=== PATIENT | male | born 1990 | race African-American/Black ===

== ENCOUNTER 2017-06-29 03:04 | Emergency (ER) | payer SELFPAY ==
[2017-06-29 03:08] VITALS: BP 131/76; BMI 29.3
[2017-06-29] MEDS ORDERED: NORFLEX INJ IM ONE (04:46)
[2017-06-29] MEDS ORDERED: TORADOL 60 MG VIAL IM ONE (04:46)
--- NOTE | 2017-06-29 04:47 | DR.EXTPAIN ---
HPI - Time seen Time seen: 15:00 - PCP Primary Care Physician: CRISTINO - HPI Comment HPI Comment: WORSE TONIGHT. NO FEVER OR TRAUMA. MEDS AT HOME DID NOT HELP PAIN. - Complaint/Symptoms Chief Complaint Doctor Comments: PAIN ABOVE KNEES TIMES 3 DAYS. Chief Complaint:: BILATERAL KNEE PAIN SINCE THURSDAY. DENIES ANY EDEMA. DENIES ANY TRAUMA. - Nurses notes reviewed Nurses Notes Review: Yes - Source History Provided: Patient - Mode of arrival Mode of Arrival: Ambulatory - Timing Onset of Chief Complaint: 06/25/17 - Context History of: None - Associated signs and symptoms Associated Signs and Symptoms: Pain PMH - PMH Past Medical History: Yes Past Medical History: Headaches Past Medical History Comment: CHRONIC BACK PAIN Past Surgical History: No - Family History History of Family Medical Conditions: No Family Medical History: Diabetes Mellitus, Hypertension - Social History Does patient currently use any type of tobacco product: No Have you used tobacco products in the last 12 months: No Type of Tobacco Use: Cigarettes Alcohol Use: Occasionally Do you use any recreational Drugs:: No Lives Where: Home - infectious screening Have you traveled outside the country in the last 6 months?: No Isolation: Standard ROS - Review of Systems Constitutional: No Symptoms Reported Eyes: No Symptoms Reported ENTM: No Symptoms Reported Respiratoy: No Symptoms Reported Cardiovascular: No Symptoms Reported Gastrointestinal/Abdominal: No Symptoms Reported Genitourinary: No Symptoms Reported Neurological: No Symptoms Reported Musculoskeletal: Muscle Pain, Right, Left, Knee Integumentary: No Symptoms Reported Hematologic/Lymphatic: No Symptoms Reported Endocrine: No Symptoms Reported All Other Systems: Reviewed and Negative PE - Vital Signs Vitals: Temperature 99.2 F Pulse Rate 98 Respiratory Rate 16 Blood Pressure [Right Arm] 137/58 Blood Pressure 131/76 O2 Sat by Pulse Oximetry 98 - General Limitations: No Limitations General Appearance: Alert - Head Head Exam: Normal Inspection - Eyes Eye exam: Normal Appearance - ENT ENT Exam: Normal External Ear Exam - Neck Neck Exam: Normal Inspection - Chest Chest Inspection: Symmetric Chest Wall Rise - Respiratory Respiratory Exam: Normal Lung Sounds Bilat Respiratory Exam: Bilateral Clear to Auscultation - Cardiovascular Cardiovascular Exam: Regular Rate, Normal Rhythm, Normal Heart Sounds - Abdominal Exam Abdominal Exam: Normal Bowel Sounds, Soft. negative: Tenderness - Extremities Extremities Exam: Tenderness (TENDERNESS ABOVE BOTH KNEES IN THE THIGH. PULSES INTACT.) - Lower Extremities Neurovascular/Tendon Exam: Normal Capillary Refill Gait Exam: Observed & Limited by Pain - Back Back Exam: Paraspinal Tenderness (LOWER SPINE.) - Neurological Neurological Exam: Alert, Oriented X3 - Psychiatric Psychiatric Exam: Normal Affect, Normal Mood - Skin Skin Exam: Normal Color MDM - Differential Diagnosis Differential Diagnosis: Sprain, Other (BURSITIS, TENDINITIS, ARTHRTIS) Course - Treatment Treatment: SEE ORDERS. IM TORADOL AND NORFLEX IN ED. - Reevaluation 1st: Improved - Education/Counseling Education/Counseling: Patient, Education Educated On: Diagnosis, Needs for Follow Up ROR - Labs Reviewed Laboratory Results Reviewed?: Yes Laboratory: D-Dimer < 100 ng/mL (0-400) 06/29/17 05:15 - Diagnosis Discharge Problem: Musculoskeletal pain - Discharge Plan Condition: Stable Prescriptions: Acetaminophen with Codeine [Tylenol/Codeine #3 300-30 mg] 1 tab PO Q6H PRN #15 tab PRN Reason: Pain Meloxicam [Mobic Tab 15 mg] 15 mg PO DAILY #30 tab Tizanidine HCl [Zanaflex 2 mg] 2 mg PO Q8H PRN #21 cap PRN Reason: Muscle Spasms - Follow ups/Referrals Follow ups/Referrals: Karri GREGG [Primary Care Provider] - 3 days - Instructions Instructions: Musculoskeletal Pain Additional Instructions: RETURN TO ED IF WORSE.
[2017-06-29] MEDS ORDERED: NORFLEX INJ ONE (05:00)
[2017-06-29] MEDS ORDERED: TORADOL 60 MG VIAL ONE (05:00)
== END 2017-06-29 06:38 | disposition home or self-care (01) ==
LOC: ER 03:04
DX: M25.561 Pain in right knee (principal); M25.562 Pain in left knee
CPT/HCPCS: 36415; 85378; 96372; 99282; J1885; J2360

== ENCOUNTER 2018-01-22 09:50 | Inpatient (IN) ==
[2018-01-22] MEDS: NS 1000 ML 1,000 ML IV SCH (11:42)
[2018-01-22] MEDS ORDERED: NORCO 5/325 MG TAB PO PRN (11:44)
[2018-01-22 11:45] LABS: BASOPHILS # (AUTO) 0.1 X10^3/uL (0.0-0.1); EOSINOPHILS # (AUTO) 0.7 x10^3/uL (0.0-0.2); EOSINOPHILS % (AUTO) 11.6 % (0.9-2.9); HEMATOCRIT 36.9 % (42.0-54.0); HEMOGLOBIN 12.2 g/dL (13.5-18.0); LYMPHOCYTES # (AUTO) 3.7 X10^3/uL (1.3-2.9); LYMPHOCYTES % (AUTO) 64.5 % (21.0-51.0); MEAN CORPUSCULAR HEMOGLOBIN 28.3 pg (27.0-34.0); MEAN CORPUSCULAR HGB CONC 33.1 g/dL (33.0-35.0); MEAN CORPUSCULAR VOLUME 85.3 fL (80.0-100.0); MEAN PLATELET VOLUME 8.3 fL (7.4-11.0); MONOCYTES # (AUTO) 0.3 x10^3/uL (0.3-0.8); NEUTROPHILS % (AUTO) 16.9 % (42.0-75.0); PLATELET COUNT 261 X10^3/uL (150.0-450.0); RED BLOOD COUNT 4.32 X10^6/uL (4.7-6.0); RED CELL DISTRIBUTION WIDTH 12.9 % (11.6-16.5); WHITE BLOOD COUNT 5.8 X10^3/uL (3.6-10.0)
[2018-01-22 12:06] LABS: ALANINE AMINOTRANSFERASE 170 Units/L (12-78); ALBUMIN 3.2 g/dL (3.4-5.0); ALKALINE PHOSPHATASE 83 Units/L (46-116); ASPARTATE AMINO TRANSFERASE 86 Units/L (15-37); BLOOD UREA NITROGEN 6 mg/dL (7-18); CALCIUM 8.6 mg/dL (8.5-10.1); CARBON DIOXIDE 30.5 mmol/L (21-32); CHLORIDE 103 mmol/L (98-107); COR CA(FOR HYPOALB) 9.2 mg/dL (8.5-10.1); CREATININE 0.99 mg/dL (0.70-1.30); PLATELET MORPHOLOGY COMMENT NORMAL (NORMAL); SODIUM 138 mmol/L (136-145); TOTAL PROTEIN 7.9 g/dL (6.4-8.2); eGFR NON BLACK RACES > 60 (>60)
[2018-01-22] MEDS: ZOSYN VIAL 3.375 GRAMS 3.375 G in NS 100 ML IV + SPIKE MINIBAG* 100 ML IV SCH ×2 (12:15→21:00)
[2018-01-22] MEDS: VISTARIL PO PRN (13:30)
[2018-01-22] MEDS ORDERED: ZOSYN VIAL 3.375 GRAMS IV SCH (14:00)
[2018-01-22 14:45] VITALS: BMI 26.7
[2018-01-22] MEDS: NORCO 10/325 TAB PO PRN (16:27)
[2018-01-22] MEDS: ROBITUSSIN DM PO PRN (16:28)
[2018-01-22] MEDS ORDERED: POTASSIUM CHL 60 MEQ/NS 0.45% 500 ML IV PRN (16:38)
[2018-01-22] MEDS ORDERED: POTASSIUM CHLORIDE LIQ 20 MEQ UDC PO PRN (16:38)
[2018-01-22] MEDS ORDERED: K-LYTE EFFERVESCENT PO PRN (16:38)
[2018-01-22] MEDS ORDERED: K-RIDER 10 MEQ/NS 100 ML 10 MEQ/100 ML BAG IV PRN (16:38)
[2018-01-22] MEDS ORDERED: POTASSIUM CHL 40 MEQ/NS 0.45% 500 ML IV PRN (16:38)
[2018-01-23] MEDS: NS 1000 ML 1,000 ML IV SCH ×3 (00:37→13:31)
[2018-01-23] MEDS: NORCO 10/325 TAB PO PRN (03:29)
[2018-01-23] MEDS: VISTARIL PO PRN ×3 (03:30→20:40)
[2018-01-23] MEDS: ROBITUSSIN DM PO PRN (03:30)
[2018-01-23] MEDS: ZOSYN VIAL 3.375 GRAMS 3.375 G in NS 100 ML IV + SPIKE MINIBAG* 100 ML IV SCH ×3 (05:37→22:24)
[2018-01-23 06:20] LABS: BASOPHILS % (AUTO) 0.5 % (0.2-1.0); EOSINOPHILS # (AUTO) 0.5 x10^3/uL (0.0-0.2); EOSINOPHILS % (AUTO) 10.5 % (0.9-2.9); HEMATOCRIT 34.2 % (42.0-54.0); HEMOGLOBIN 11.4 g/dL (13.5-18.0); LYMPHOCYTES # (AUTO) 2.7 X10^3/uL (1.3-2.9); LYMPHOCYTES % (AUTO) 52.6 % (21.0-51.0); MEAN CORPUSCULAR HEMOGLOBIN 28.6 pg (27.0-34.0); MEAN CORPUSCULAR HGB CONC 33.2 g/dL (33.0-35.0); MEAN PLATELET VOLUME 8.6 fL (7.4-11.0); MONOCYTES # (AUTO) 0.4 x10^3/uL (0.3-0.8); MONOCYTES % (AUTO) 7.2 % (0.0-13.0); NEUTROPHILS # (AUTO) 1.5 x10^3/uL (2.2-4.8); NEUTROPHILS % (AUTO) 29.2 % (42.0-75.0); PLATELET COUNT 207 X10^3/uL (150.0-450.0); RED BLOOD COUNT 3.98 X10^6/uL (4.7-6.0); RED CELL DISTRIBUTION WIDTH 12.5 % (11.6-16.5); WHITE BLOOD COUNT 5.1 X10^3/uL (3.6-10.0)
[2018-01-23 06:35] LABS: ALANINE AMINOTRANSFERASE 149 Units/L (12-78); ALBUMIN 2.5 g/dL (3.4-5.0); ALKALINE PHOSPHATASE 72 Units/L (46-116); ASPARTATE AMINO TRANSFERASE 75 Units/L (15-37); BLOOD UREA NITROGEN 11 mg/dL (7-18); CARBON DIOXIDE 31.1 mmol/L (21-32); CHLORIDE 108 mmol/L (98-107); COR CA(FOR HYPOALB) 9.2 mg/dL (8.5-10.1); CREATININE 1.07 mg/dL (0.70-1.30); SODIUM 142 mmol/L (136-145); TOTAL PROTEIN 6.5 g/dL (6.4-8.2); eGFR NON BLACK RACES > 60 (>60)
[2018-01-23] MEDS: PERCOCET TAB 5/325 MG PO PRN ×3 (10:20→21:23)
[2018-01-23] MEDS: NICOTINE PATCH TD SCH (13:30)
[2018-01-23] MEDS: AMBIEN PO PRN (23:58)
[2018-01-24] MEDS: NS 1000 ML 1,000 ML IV SCH ×2 (04:18→15:36)
[2018-01-24 05:21] LABS: BASOPHILS % (AUTO) 0.6 % (0.2-1.0); EOSINOPHILS # (AUTO) 0.6 x10^3/uL (0.0-0.2); EOSINOPHILS % (AUTO) 10.3 % (0.9-2.9); HEMATOCRIT 31.9 % (42.0-54.0); HEMOGLOBIN 10.7 g/dL (13.5-18.0); LYMPHOCYTES # (AUTO) 2.6 X10^3/uL (1.3-2.9); LYMPHOCYTES % (AUTO) 45.2 % (21.0-51.0); MEAN CORPUSCULAR HEMOGLOBIN 28.6 pg (27.0-34.0); MEAN CORPUSCULAR HGB CONC 33.7 g/dL (33.0-35.0); MEAN CORPUSCULAR VOLUME 84.9 fL (80.0-100.0); MEAN PLATELET VOLUME 8.5 fL (7.4-11.0); MONOCYTES # (AUTO) 0.5 x10^3/uL (0.3-0.8); MONOCYTES % (AUTO) 8.7 % (0.0-13.0); NEUTROPHILS % (AUTO) 35.2 % (42.0-75.0); PLATELET COUNT 209 X10^3/uL (150.0-450.0); RED BLOOD COUNT 3.76 X10^6/uL (4.7-6.0); WHITE BLOOD COUNT 5.7 X10^3/uL (3.6-10.0)
[2018-01-24 05:31] LABS: ALANINE AMINOTRANSFERASE 165 Units/L (12-78); ALBUMIN 2.3 g/dL (3.4-5.0); ALKALINE PHOSPHATASE 78 Units/L (46-116); ASPARTATE AMINO TRANSFERASE 97 Units/L (15-37); BLOOD UREA NITROGEN 13 mg/dL (7-18); CALCIUM 7.8 mg/dL (8.5-10.1); CARBON DIOXIDE 30.4 mmol/L (21-32); CHLORIDE 108 mmol/L (98-107); COR CA(FOR HYPOALB) 9.2 mg/dL (8.5-10.1); CREATININE 1.44 mg/dL (0.70-1.30); SODIUM 141 mmol/L (136-145); TOTAL PROTEIN 6.1 g/dL (6.4-8.2); eGFR NON BLACK RACES > 60 (>60)
[2018-01-24] MEDS: ZOSYN VIAL 3.375 GRAMS 3.375 G in NS 100 ML IV + SPIKE MINIBAG* 100 ML IV SCH ×3 (07:57→21:02)
[2018-01-24] MEDS: PERCOCET TAB 5/325 MG PO PRN ×3 (08:01→20:24)
[2018-01-24] MEDS: NICOTINE PATCH TD SCH (08:01)
[2018-01-24] MEDS: VISTARIL PO PRN ×2 (10:17→20:24)
[2018-01-24] MEDS ORDERED: AQUAPHOR TOP PRN (11:22)
--- NOTE | 2018-01-24 11:31 | PCM.PROG ---
Progress Note - Progress Note for Day of Date of Exam: 01/24/18 - Subjective Subjective: PT IS 27 BM, PATIENT OF DR CEBALLOS ADMITTED FOR DIFFUSE RASH AND LEFT AXILLARY ABSCESS S/P I&D. PT IS CURRENTLY ON IV ATBX WITH LEFT WOUND CULTURE SENSATIVITY PENDING. PT CO DRY SKIN ALL OVER AND ITCHING. PT REPORTS HE IS HAVING MODERATE PAIN TO LEFT AXILLARY, NO VISIBLE OPEN WOUND THIS AM, NO DISCHARGE. INCREASED LIVER ENZYMES, PT HAS HEPATITIS PANEL COLLECTED WITH RESULTS PENDING. - Past Medical Family Social History Past Med/Fam/Surg Hx: No changes since H&P Allergies: Allergies No Known Drug Allergies Allergy (Verified 06/29/17 03:08) - Review of Systems ROS: No change since H&P - Vital Signs and I&O's Vital Signs: Temperature 98.3 F Pulse Rate [Right Brachial] 69 Respiratory Rate 20 Blood Pressure [Right Arm] 117/70 Blood Pressure 132/66 O2 Sat by Pulse Oximetry 99 Intake and Output: Intake & Output 01/21/18 01/22/18 01/23/18 01/24/18 11:59 11:59 11:59 11:59 Intake Total 850 / 850 2799 / 2799 Balance 850 / 850 2799 / 2799 - Physical Exam Oriented: Normal Eyes: Normal Ear: Normal Nose: Normal Throat: Dry Respiratory: Normal Cardiovascular: Normal : Normal Auscultation: Bowel Sounds: Normal Palpation: Normal Tenderness: RUQ, Epigastric, Mild Skin: Rash (DIFFUSE SANDPAPER RASH, WITH EXTREME DRY FLAKING SKIN, PRURITIC), Tender, Wound (2CM X 2CM AREA OF SWELLING TO LEFT AXILLARY ( S/P I&D) WITHOUT OPEN WOUND) Mood Description: Calm Speech Pattern: Clear, Appropriate - Laboratory and Diagnostics Result Diagrams: 01/24/18 04:20 01/24/18 04:20 Labs: 01/22/18 11:31 Blood Blood Culture - Preliminary 01/22/18 11:24 Blood Blood Culture - Preliminary Laboratory WBC 5.7 X10^3/uL (3.6-10.0) 01/24/18 04:20 RBC 3.76 X10^6/uL (4.7-6.0) L 01/24/18 04:20 Hgb 10.7 g/dL (13.5-18.0) L 01/24/18 04:20 Hct 31.9 % (42.0-54.0) L 01/24/18 04:20 MCV 84.9 fL (80.0-100.0) 01/24/18 04:20 MCH 28.6 pg (27.0-34.0) 01/24/18 04:20 MCHC 33.7 g/dL (33.0-35.0) 01/24/18 04:20 RDW 13.0 % (11.6-16.5) 01/24/18 04:20 Plt Count 209 X10^3/uL (150.0-450.0) 01/24/18 04:20 Plt Count Comment Adequate (ADEQUATE) 01/22/18 11:24 MPV 8.5 fL (7.4-11.0) 01/24/18 04:20 Neut % (Auto) 35.2 % (42.0-75.0) L 01/24/18 04:20 Lymph % (Auto) 45.2 % (21.0-51.0) 01/24/18 04:20 [place] % (Auto) 8.7 % (0.0-13.0) 01/24/18 04:20 Eos % (Auto) 10.3 % (0.9-2.9) H 01/24/18 04:20 Baso % (Auto) 0.6 % (0.2-1.0) 01/24/18 04:20 Neut # (Auto) 2.0 x10^3/uL (2.2-4.8) L 01/24/18 04:20 Lymph # (Auto) 2.6 X10^3/uL (1.3-2.9) 01/24/18 04:20 [place] # (Auto) 0.5 x10^3/uL (0.3-0.8) 01/24/18 04:20 Eos # (Auto) 0.6 x10^3/uL (0.0-0.2) H 01/24/18 04:20 Baso # (Auto) 0.0 X10^3/uL (0.0-0.1) 01/24/18 04:20 Absolute Nucleated RBC 0.2 /100WBC 01/24/18 04:20 Total Counted 100 01/22/18 11:24 Neutrophils % (Manual) 20 % (39-76) L 01/22/18 11:24 Lymphocytes % (Manual) 70 % (13-43) H 01/22/18 11:24 Monocytes % (Manual) 4 % (4-9) 01/22/18 11:24 Eosinophils % (Manual) 6 % (0-6) 01/22/18 11:24 Plt Morphology Comment Normal (NORMAL) 01/22/18 11:24 RBC Morphology Normal (NORMAL) 01/22/18 11:24 Sodium 141 mmol/L (136-145) 01/24/18 04:20 Corrected Sodium TNP 01/24/18 04:20 Potassium 3.9 mmol/L (3.5-5.1) 01/24/18 04:20 Chloride 108 mmol/L (98-107) H 01/24/18 04:20 Carbon Dioxide 30.4 mmol/L (21-32) 01/24/18 04:20 BUN 13 mg/dL (7-18) 01/24/18 04:20 Creatinine 1.44 mg/dL (0.70-1.30) H 01/24/18 04:20 Est GFR (MDRD) Af Amer > 60 (>60) 01/24/18 04:20 Est GFR (MDRD) Non-Af > 60 (>60) 01/24/18 04:20 Glucose 78 mg/dL (65-99) 01/24/18 04:20 Calcium 7.8 mg/dL (8.5-10.1) L 01/24/18 04:20 Corrected Calcium 9.2 mg/dL (8.5-10.1) 01/24/18 04:20 Magnesium 2.2 mg/dL (1.7-2.9) 01/22/18 11:24 Total Bilirubin 0.10 mg/dL (0.2-1.0) L 01/24/18 04:20 AST 97 Units/L (15-37) H 01/24/18 04:20 ALT 165 Units/L (12-78) H 01/24/18 04:20 Alkaline Phosphatase 78 Units/L (46-116) 01/24/18 04:20 Total Protein 6.1 g/dL (6.4-8.2) L 01/24/18 04:20 Albumin 2.3 g/dL (3.4-5.0) L 01/24/18 04:20 Globulin 3.8 g/dL (2.5-4.5) 01/24/18 04:20 Albumin/Globulin Ratio 0.6 Ratio (1.1-2.1) L 01/24/18 04:20 - Plan (1) Allergic dermatitis Status: Acute Plan: CONTINUE IV ATBX, IV ANTIHISTAMINES, HIBLICLENS. TRIAL ON TOPICAL TRIAMCINOLONE, CRP AND SED RATE. LIVER US DUE TO CONTINUED ELEVATED LFT'S. ENCOURAGE ORAL HYDRATION (2) Pruritus Status: Acute (3) Cellulitis of left axilla Status: Acute
[2018-01-24] MEDS ORDERED: KENALOG CREAM ONE (12:16)
[2018-01-24] MEDS: KENALOG CREAM TOP SCH ×2 (12:19→20:27)
[2018-01-24] MEDS: EUCERIN TOP PRN ×2 (16:04→20:26)
[2018-01-24] MEDS ORDERED: SOLU-Medrol 125 MG VIAL IVP ONE (16:09)
--- NOTE | 2018-01-24 22:10 | PCM.PROG ---
Progress Note - Progress Note for Day of Date of Exam: 01/23/18 - Subjective Subjective: IS A 27 YEAR OLD PATIENT WHO WAS ADMITTED FOR A DIFFUSE RASH AND A LEFT AXILLARY ABSCESS. AN I&D WAS DONE IN THE OFFICE AND WOUND CULTURES WERE OBTAINED. TODAY, HE IS ALERT AND ORIENTED, LYING IN BED ON MORNING ROUNDS. HE CONTINUES WITH DIFFUSE RASH AND REDNESS AND SWELLING TO THE LEFT AXILLA. HIS VITALS THIS MORNING ARE 98.3-74-18-98%-158/67. LABS WERE OBTAINED. ABNORMAL LAB VALUES INCLUDE THE FOLLOWING: WBC 3.98, HGB 11.4, HCT 34.2, CHLORIDE 108, CALCIUM 8.0, AST 75, ALT 149, ALBUMIN 2.5. BLOOD CULTURES ARE PENDING. HE IS CURRENTLY RECEIVING ZOSYN 3.375GM IV TID. TODAY, WE WILL CONTINUE WITH IV ANTIBIOTICS AND OBTAIN AN ACUTE HEPATITIS PANEL DUE TO ELEVATED LFTs. OTHERWISE, WE WILL FOLLOW UP WITH AM LABS AND CONTINUE TO MONITOR PATIENT. - Past Medical Family Social History Past Med/Fam/Surg Hx: No changes since H&P Allergies: Allergies No Known Drug Allergies Allergy (Verified 06/29/17 03:08) - Review of Systems ROS: No change since H&P - Vital Signs and I&O's Vital Signs: Temperature 97.7 F Pulse Rate [Right Brachial] 67 Respiratory Rate 18 Blood Pressure [Right Arm] 118/55 Blood Pressure 132/66 O2 Sat by Pulse Oximetry 95 Intake and Output: Intake & Output 01/22/18 01/23/18 01/24/18 01/25/18 11:59 11:59 11:59 11:59 Intake Total 850 / 850 2799 / 2799 1160 / 1160 Balance 850 / 850 2799 / 2799 1160 / 1160 - Physical Exam Oriented: Normal Eyes: Normal Ear: Normal Nose: Normal Throat: Dry Respiratory: Normal Cardiovascular: Normal : Normal Auscultation: Bowel Sounds: Normal Palpation: Normal Tenderness: RUQ, Epigastric, Mild Skin: Rash (DIFFUSE SANDPAPER RASH, WITH EXTREME DRY FLAKING SKIN, PRURITIC), Tender, Wound (2CM X 2CM AREA OF SWELLING TO LEFT AXILLARY ( S/P I&D) WITHOUT OPEN WOUND) Mood Description: Calm Speech Pattern: Clear, Appropriate - Laboratory and Diagnostics Result Diagrams: 01/24/18 04:20 01/24/18 04:20 Labs: 01/22/18 11:31 Blood Blood Culture - Preliminary 01/22/18 11:24 Blood Blood Culture - Preliminary Laboratory WBC 5.7 X10^3/uL (3.6-10.0) 01/24/18 04:20 RBC 3.76 X10^6/uL (4.7-6.0) L 01/24/18 04:20 Hgb 10.7 g/dL (13.5-18.0) L 01/24/18 04:20 Hct 31.9 % (42.0-54.0) L 01/24/18 04:20 MCV 84.9 fL (80.0-100.0) 01/24/18 04:20 MCH 28.6 pg (27.0-34.0) 01/24/18 04:20 MCHC 33.7 g/dL (33.0-35.0) 01/24/18 04:20 RDW 13.0 % (11.6-16.5) 01/24/18 04:20 Plt Count 209 X10^3/uL (150.0-450.0) 01/24/18 04:20 Plt Count Comment Adequate (ADEQUATE) 01/22/18 11:24 MPV 8.5 fL (7.4-11.0) 01/24/18 04:20 Neut % (Auto) 35.2 % (42.0-75.0) L 01/24/18 04:20 Lymph % (Auto) 45.2 % (21.0-51.0) 01/24/18 04:20 [place] % (Auto) 8.7 % (0.0-13.0) 01/24/18 04:20 Eos % (Auto) 10.3 % (0.9-2.9) H 01/24/18 04:20 Baso % (Auto) 0.6 % (0.2-1.0) 01/24/18 04:20 Neut # (Auto) 2.0 x10^3/uL (2.2-4.8) L 01/24/18 04:20 Lymph # (Auto) 2.6 X10^3/uL (1.3-2.9) 01/24/18 04:20 [place] # (Auto) 0.5 x10^3/uL (0.3-0.8) 01/24/18 04:20 Eos # (Auto) 0.6 x10^3/uL (0.0-0.2) H 01/24/18 04:20 Baso # (Auto) 0.0 X10^3/uL (0.0-0.1) 01/24/18 04:20 Absolute Nucleated RBC 0.2 /100WBC 01/24/18 04:20 Total Counted 100 01/22/18 11:24 Neutrophils % (Manual) 20 % (39-76) L 01/22/18 11:24 Lymphocytes % (Manual) 70 % (13-43) H 01/22/18 11:24 Monocytes % (Manual) 4 % (4-9) 01/22/18 11:24 Eosinophils % (Manual) 6 % (0-6) 01/22/18 11:24 Plt Morphology Comment Normal (NORMAL) 01/22/18 11:24 RBC Morphology Normal (NORMAL) 01/22/18 11:24 ESR 14 MM/HOUR (0-15) 01/24/18 04:20 Sodium 141 mmol/L (136-145) 01/24/18 04:20 Corrected Sodium TNP 01/24/18 04:20 Potassium 3.9 mmol/L (3.5-5.1) 01/24/18 04:20 Chloride 108 mmol/L (98-107) H 01/24/18 04:20 Carbon Dioxide 30.4 mmol/L (21-32) 01/24/18 04:20 BUN 13 mg/dL (7-18) 01/24/18 04:20 Creatinine 1.44 mg/dL (0.70-1.30) H 01/24/18 04:20 Est GFR (MDRD) Af Amer > 60 (>60) 01/24/18 04:20 Est GFR (MDRD) Non-Af > 60 (>60) 01/24/18 04:20 Glucose 78 mg/dL (65-99) 01/24/18 04:20 Calcium 7.8 mg/dL (8.5-10.1) L 01/24/18 04:20 Corrected Calcium 9.2 mg/dL (8.5-10.1) 01/24/18 04:20 Magnesium 2.2 mg/dL (1.7-2.9) 01/22/18 11:24 Total Bilirubin 0.10 mg/dL (0.2-1.0) L 01/24/18 04:20 AST 97 Units/L (15-37) H 01/24/18 04:20 ALT 165 Units/L (12-78) H 01/24/18 04:20 Alkaline Phosphatase 78 Units/L (46-116) 01/24/18 04:20 C-Reactive Protein 8.10 mg/L (0-3.0) H 01/24/18 04:20 Total Protein 6.1 g/dL (6.4-8.2) L 01/24/18 04:20 Albumin 2.3 g/dL (3.4-5.0) L 01/24/18 04:20 Globulin 3.8 g/dL (2.5-4.5) 01/24/18 04:20 Albumin/Globulin Ratio 0.6 Ratio (1.1-2.1) L 01/24/18 04:20 - Plan (1) Allergic dermatitis Status: Acute Plan: CONTINUE IV ATBX, WOUND CARE (2) Pruritus Status: Acute (3) Axillary abscess Status: Acute (4) Cellulitis of left axilla Status: Acute (5) Elevated LFTs Status: Acute Plan: OBTAIN ACUTE HEPATITIS PANEL
--- NOTE | 2018-01-24 22:12 | DR.UPDATE ---
H&P Update History and Physical Update: WAS SEEN IN THE OFFICE TODAY. A H&P WAS COMPLETED PRIOR TO ADMISSION. PATIENT HAS BEEN SEEN AND EXAMINED WITH NO CHANGES NOTED TO H&P. Changes noted: NO Yes with the following:
[2018-01-24] MEDS: AMBIEN PO PRN (22:27)
[2018-01-25 05:29] LABS: BASOPHILS % (AUTO) 0.2 % (0.2-1.0); EOSINOPHILS % (AUTO) 0.1 % (0.9-2.9); HEMOGLOBIN 11.3 g/dL (13.5-18.0); LYMPHOCYTES # (AUTO) 2.2 X10^3/uL (1.3-2.9); LYMPHOCYTES % (AUTO) 28.9 % (21.0-51.0); MEAN CORPUSCULAR HEMOGLOBIN 28.1 pg (27.0-34.0); MEAN CORPUSCULAR HGB CONC 33.2 g/dL (33.0-35.0); MEAN CORPUSCULAR VOLUME 84.6 fL (80.0-100.0); MEAN PLATELET VOLUME 8.8 fL (7.4-11.0); MONOCYTES # (AUTO) 0.2 x10^3/uL (0.3-0.8); MONOCYTES % (AUTO) 3.2 % (0.0-13.0); NEUTROPHILS # (AUTO) 5.1 x10^3/uL (2.2-4.8); NEUTROPHILS % (AUTO) 67.6 % (42.0-75.0); PLATELET COUNT 213 X10^3/uL (150.0-450.0); RED BLOOD COUNT 4.02 X10^6/uL (4.7-6.0); RED CELL DISTRIBUTION WIDTH 12.9 % (11.6-16.5); WHITE BLOOD COUNT 7.5 X10^3/uL (3.6-10.0)
[2018-01-25] MEDS: ZOSYN VIAL 3.375 GRAMS 3.375 G in NS 100 ML IV + SPIKE MINIBAG* 100 ML IV SCH (05:41)
[2018-01-25] MEDS: NS 1000 ML 1,000 ML IV SCH (05:42)
[2018-01-25 05:47] LABS: ALANINE AMINOTRANSFERASE 206 Units/L (12-78); ALBUMIN 2.5 g/dL (3.4-5.0); ALKALINE PHOSPHATASE 79 Units/L (46-116); ASPARTATE AMINO TRANSFERASE 99 Units/L (15-37); BLOOD UREA NITROGEN 9 mg/dL (7-18); CALCIUM 8.5 mg/dL (8.5-10.1); CHLORIDE 105 mmol/L (98-107); COR CA(FOR HYPOALB) 9.7 mg/dL (8.5-10.1); CREATININE 0.85 mg/dL (0.70-1.30); SODIUM 137 mmol/L (136-145); TOTAL PROTEIN 6.9 g/dL (6.4-8.2); eGFR NON BLACK RACES > 60 (>60)
[2018-01-25] MEDS ORDERED: BUTALBITAL ACETAMINOPHEN CAFF PO PRN (07:57)
[2018-01-25] MEDS ORDERED: PHARMACY CONSULT - VANCOMYCIN XX SCH (08:00)
[2018-01-25] MEDS ORDERED: FIORICET TAB PO PRN (08:34)
--- NOTE | 2018-01-25 08:38 | US ---
HISTORY: Abnormal LFTs Study: Liver ultrasound: Multiplanar ultrasonographic examination of the liver was performed Comparison: None Findings: The liver is of normal size, echogenicity and echotexture. No evidence of intrahepatic biliary duct dilatation is noted. Vascular flow was in normal direction. The gallbladder shows no evidence of gallstones, pericholecystic fluid or gallbladder wall thickening . Common bile duct is normal at 4 mm. The right kidney as visualized is normal measuring 10.4 cm in length IMPRESSION: 1. Negative liver ultrasound Reported By:
[2018-01-25] MEDS: NICOTINE PATCH TD SCH (08:43)
[2018-01-25] MEDS: KENALOG CREAM TOP SCH (08:43)
[2018-01-25] MEDS ORDERED: ZANTAC PO SCH (09:00)
[2018-01-25] MEDS: PERCOCET TAB 5/325 MG PO PRN (09:10)
[2018-01-25] MEDS ORDERED: HIBICLENS WASH ONE (10:31)
[2018-01-25 11:39] VITALS: BP 115/56
[2018-01-25] MEDS ORDERED: VANCOMYCIN HCL 1 GM VIAL 1 G in D5W 250 ML IV 250 ML IV SCH (14:00)
[2018-01-26] MEDS ORDERED: PHARMACY COMMENT IV NR (05:30)
[2018-01-26 20:38] LABS: HEPATITIS A ANTIBODY IGM Negative (Negative)
[2018-01-27 06:50] LABS: HEPATITIS B CORE IGM Negative (Negative); HEPATITIS B SURFACE ANTIGEN Negative (Negative)
--- NOTE | 2018-03-03 22:15 | DR.CARTERD ---
- Discharge Summary for: Discharge Summary for Date of:: 01/25/18 - Admission Date Date of Admission: 01/22/18 - Admission Diagnoses Admission Diagnosis: (1) Cellulitis of left axilla (2) Allergic dermatitis (3) Pruritus (4) Axillary abscess (5) Elevated LFTs - Discharge Date Discharge Date: 01/25/18 - Discharge Diagnoses Discharge Diagnosis: (1) Cellulitis of left axilla (2) Allergic dermatitis (3) Pruritus (4) Axillary abscess (5) Elevated LFTs - Hospital Course Hospital Course: Day one, Patient presented to the hospital as a direct admission with reports of worsening in rash. Patient reported he had been on Bactrim Ds and Clindamycin for cellulitis under arm. Patient reported a previous ER visit on 01/16/18 where he underwent an I&D of the lump under his arm. Patient then followed up with PCP on Thursday following visit and told cultures collected in ER where positive for staph. Patient noted with continued redness to left arm which had progressively worsened. Patient rated pain an 8 on a scale of 0-10. Patient admitted for aggressive IV antibiotics as well as pain and nausea control. Blood cultures X 2 as well as labs obtained. Labs collected revealed low potassium of 3.4, patient supplemented with Effervescent 25meq. Day two, Patient was alert and oriented. He continued with diffuse rash and redness and swelling to the left axilla. Vitals were stable. He continued to receive Zosyn 3.375gm iv tid. We continued with IV fluids and IV antibiotics. We continued to monitor. Day three, Patient noted with continued diffuse redness, edema and rash to left axilla. Patient continued on IV Zosyn three times a day. Wound noted with a diffuse sandpaper rash with extreme dry flaking skin. Area noted to be 2x2cm. Patient reported moderate pain to left axilla and was noted to have received Percocet x6 in the last 24 hours for pain. Patient given a one-time dose of Solu-Medrol for rash. A hepatitis panel was obtained due to elevated liver enzymes which was noted to be negative. Patient noted continued epigastric and right upper quadrant abdominal tenderness on palpation of abdomen. We continued with IV antibiotics, wound care, and pain and nausea control. Day four, Patient reported he was feeling better and rash was receding. Left axilla was noted with less redness and swelling. Final blood cultures were negative. Vital signs stable. Labs wnl. We planned for discharge. Instructions for medications and follow up were discussed with patient and family, both voiced understanding. Patient discharged home in stable condition with family. - Discharge Medications Discharge Medications: Home Medication List [id number] 1 - 2 tab PO Q4H PRN 01/22/18 [History] clindamycin HCl [Cleocin HCl] 300 mg PO QID 01/22/18 [History] hydrocodone-acetaminophen [[employer]] 1 tab PO PRN PRN 01/22/18 [History] sulfamethoxazole-trimethoprim [Bactrim DS] 1 tab PO BID #20 tab 01/25/18 [Rx] Prescriptions: sulfamethoxazole-trimethoprim [Bactrim DS] Cayden Lutz Home medications hydroxyzine HCl 25 mg PO QID PRN #20 tab 12/22/17 ranitidine HCl [Zantac Maximum Strength] 150 mg PO BID #20 tab 12/22/17 - Discharge Disposition Discharge Disposition: Patient is to follow up with Dr. Gracia in one week.
== END 2018-01-25 13:05 | disposition home or self-care (01) | DRG 603 ==
LOC: MED/SURG 10:39
PROVIDERS: ADMIT Internal Medicine; ATTEND Internal Medicine
DX: R79.82 Elevated C-reactive protein (CRP); L29.8 Other pruritus; R94.5 Abnormal results of liver function studies; L03.112 Cellulitis of left axilla; L02.432 Carbuncle of left axilla; M79.622 Pain in left upper arm; L23.89 Allergic contact dermatitis due to other agents
CPT/HCPCS: 36415; 76705; 80053; 80074; 83735; 85025; 85652; 86140; 86701; 86703; 87040; 87389; A4222; Q0177; J2543; J2930; J7030; J7050; J8499